=== PATIENT | male | born 1960 | race Caucasian/White ===

== ENCOUNTER 2018-07-09 19:54 | Emergency (ER) | payer MEDICAID ==
[~2018-07-09] VITALS: Ht 190.5 cm; Wt 122.7 kg
[2018-07-09] MEDS: KETOROLAC TROMETHAMINE 60 MG/2 ML VIAL IM ONE (22:09)
[2018-07-09 22:14] VITALS: BP 134/78
== END 2018-07-09 22:49 | disposition home or self-care (01) ==
LOC: EMS 19:55
DX: M54.5 Low back pain (principal); G89.29 Other chronic pain; Z88.0 Allergy status to penicillin
CPT/HCPCS: 96372; 99283; J1885